=== PATIENT | female | born 1935 | race Caucasian/White ===

== ENCOUNTER → 2016-08-11 | Outpatient (CLI) | payer MEDICARE ==
[~2016-08-11] MED LIST: ADVAIR IH; ALLOPURINOL100 MG PO; AMBIEN CR6.25 MG PO; AVALIDE PO; CARDURA 2MG2 MG PO; LASIX 20MG TABL20 MG PO; LORTAB 5/500 501 TAB PO; PERCOCET 325 MG1 TA2 PO; PLAQUENIL PO; PRILOSEC 20MG20 MG PO; THEODUR 300MG PO; TRAMADOL50 MG PO; VERAPAMIL; ZOCOR; evista; proair
== END ==
LOC: COL.RAD 13:02
DX: S22.058A Other fracture of T5-T6 vertebra, initial encounter for closed fracture (principal)

== ENCOUNTER → 2017-10-10 | Outpatient (CLI) | payer MEDICARE | LOC: MC.RAD 13:00 | DX: Z12.31 Encounter for screening mammogram for malignant neoplasm of breast (principal) ==

== ENCOUNTER 2018-03-19 08:00 | Outpatient (RCR) | payer MEDICARE ==
[2018-03-15 08:46] VITALS: BP 1221/54; PULSE 53; TEMP 97.5
[2018-03-16 08:15] VITALS: BP 102/47; PULSE 90; TEMP 97.4
[2018-03-17 08:40] VITALS: BP 130/57; PULSE 66; TEMP 97.5
[2018-03-18 08:38] VITALS: BP 142/57; PULSE 57; TEMP 97.1
[~2018-03-19] VITALS: Ht 162.6 cm; Wt 79.6 kg
[~2018-03-19 08:00] MED LIST changes: -ALLOPURINOL100 MG PO; +AMBIEN 10MG10 MG PO; +ASPIRIN E.C. 8181 MG PO; +AVALIDE 12.5 MG1 TA1 PO; -AVALIDE PO; +CALCIUM 600MG+D1 TAB PO; +CATAPRES 0.1MG0.1 MG PO; +COREG12.5 MG PO; +HCTZ12.5TAB PO; +MIRAPEX 0.0.125 MG/T PO; +MULTI VITAMINS1 TAB PO; +NORCO 325 MG-51 TAB PO; +PLAQUENIL 200M200 MG PO; -PLAQUENIL PO; +PREDNISONE 5MG5 MG PO; +RT ADVAIR 228 DISKUS IH; +THEO-24 30300 MG/CAP PO; -THEODUR 300MG PO; -TRAMADOL50 MG PO; +TRANXENE 3.753.75 MG PO; +ULTRAM 50MG TAB50 MG PO; +VENTOLIN0.09 MG IH; -VERAPAMIL; +VERELAN360 MG PO; -ZOCOR; +ZOCOR5 MG PO; +ZYLOPRIM 100MG100 MG PO
[2018-03-19 09:25] VITALS: BP 142/60; PULSE 64; TEMP 97.6
== END 2018-03-19 09:26 | disposition home or self-care (01) ==
LOC: EUO 08:00
DX: N39.0 Urinary tract infection, site not specified (principal)
CPT/HCPCS: J0692

== ENCOUNTER 2019-11-21 12:29 | Inpatient (IN) | payer MEDICARE ==
[2019-11-21] VITALS (77 sets, daily range): BP systolic 94–102; BP diastolic 44–46; PULSE 49–55; TEMP 98–98.6; O2SAT 72–100
[~2019-11-21] VITALS: Ht 160 cm; Wt 79.8 kg
[2019-11-21 13:08] LABS: BASO # 0.1 (0.0-0.2); BASO % 0.4 % (0.0-2.0); EOS # 0.2 (0.0-0.7); EOS % 1.4 % (0-4.0); GRAN # 8.6 (1.4-6.5); GRAN % 74.5 % (42.2-75.2); HEMOGLOBIN 10.2 g/dl (12.5-16.0); LYMPH # 1.6 (1.2-3.4); LYMPH % 13.5 % (20.0-51.0); MEAN CELL VOLUME 97 fl (80.0-100.0); MEAN CORPUSCULAR HEMOGLOBIN 30 pg (27.0-31.0); MEAN CORPUSCULAR HGB CONC 31 g/dl (33.0-37.0); MEAN PLATELET VOLUME 10.2 fl (7.4-10.4); MONO # 1.1 (0.1-0.6); MONO % 9.4 % (1.7-9.3); PLATELET COUNT 192 K/mm3 (130-400); RED BLOOD COUNT 3.36 M/mm3 (4.10-5.30); REDCELL DISTRIBUTION WIDTH-CV 15.8 % (11.5-14.5)
[2019-11-21 13:09] LABS: HEMATOCRIT 32.6 % (37.0-47.0)
[2019-11-21 13:10] LABS: INR 1.3 (0.8-3.0)
[2019-11-21 13:18] LABS: ALBUMIN 3.3 gm/dL (3.5-5.0); BILIRUBIN,TOTAL 1.5 mg/dL (0.0-1.0); CREATININE, serum 2.14 (0.52-1.25); POTASSIUM 3.7 mmol/L (3.4-5.0); TOTAL PROTEIN 6.2 gm/dL (6.4-8.2)
[2019-11-21 13:29] LABS: TROPONIN-I 0.014 ng/mL (0.000-0.035)
[2019-11-21 13:49] LABS: C-REACTIVE PROTEIN 32.6 mg/dL (0.0-0.9)
--- NOTE | 2019-11-21 19:05 | NUR ---
RECEIVED REPORT FROM REX KOEHLER. PT SITTING UP IN BED PLAYING ON PHONE ON RA. CALL LIGHT WITHIN REACH. DENIES NEEDS.
--- NOTE | 2019-11-21 21:00 | NUR ---
DR WOOD AT BEDSIDE FOR ASSESSMENT. NO NEW ORDERS.
[2019-11-22] VITALS (403 sets, daily range): BP systolic 112–143; BP diastolic 56–91; PULSE 52–72; TEMP 97.7–98.2; O2SAT 67–100
[2019-11-22 06:28] LABS: MEAN CELL VOLUME 98 fl (80.0-100.0); MEAN CORPUSCULAR HGB CONC 31 g/dl (33.0-37.0); MEAN PLATELET VOLUME 10.8 fl (7.4-10.4); PLATELET COUNT 147 K/mm3 (130-400); RED BLOOD COUNT 3.21 M/mm3 (4.10-5.30); REDCELL DISTRIBUTION WIDTH-CV 15.2 % (11.5-14.5)
[2019-11-22 06:38] LABS: CREATININE, serum 1.61 (0.52-1.25); HEMATOCRIT 31.3 % (37.0-47.0); HEMOGLOBIN 9.7 g/dl (12.5-16.0); MAGNESIUM 1.5 mg/dL (1.6-2.3); MEAN CORPUSCULAR HEMOGLOBIN 30 pg (27.0-31.0); POTASSIUM 3.9 mmol/L (3.4-5.0)
[2019-11-22 08:18] LABS: ANISOCYTOSIS 1+; BAND 11 % (0-10); EOSINOPHIL 1 % (0-4); LYMPHOCYTE 7 % (20.0-51.0); NEUTROPHILS 78 % (42.0-75.2); PLATELET ESTIMATE NORMAL (NORMAL)
[2019-11-22 08:20] LABS: HYPOCHROMIA 2+
[2019-11-22 08:21] LABS: SCHISTOCYTES 1+
--- NOTE | 2019-11-22 14:00 | NUR ---
GUILLERMINA met with the patient to discuss discharge plan. The patient lives alone in [place]. She reports independence with ADLs and has a cane available to her, if needed. She states that she has a home wound vac that Dr. Naqvi set her up with. The patient's PCP is Dr. Mona James and she receives her medications at [facility]. She reports no difficulties obtaining her meds. The patient does not have advanced directives in EMR, but she reports that she does have a DPOA-HC completed and that the documents are at home. She states that her daughter, Blessing Ren (ph#[phone]), is her DPOA-HC and only living child. Blessing lives in [place]. The patient plans to return home upon discharge. SW discussed home health services and how they can provide education and provide assistance for the wound vac. The patient states that she will need to think about this. GUILLERMINA provided her with Medicare.gov's list of home health agencies that serve [place]. GUILLERMINA attempted to contact the patient's daughter, Blessing, to review d/c plan. SW left her a voicemail. SW to continue to follow.
--- NOTE | 2019-11-22 14:02 | NUR ---
First visit from the record changer tester. No needs right now.
--- NOTE | 2019-11-22 16:27 | NUR ---
Report given to Marcus at 1552, patient transfered to medical room 310 at 1611 via wheelchair. Patient tolerated well, all belongings sent with patient.
--- NOTE | 2019-11-22 19:34 | NUR ---
Pt up to the floor from the ICU this afternoon, no C/O pain since arriving, med rec complete, VS remain stable.
--- NOTE | 2019-11-22 20:00 | NUR ---
Report received, assumed care for retail shift leader. Assessment complete. VS stable. A&Ox3-very tearful. States she doesnt know why-she doesnt like being in the hospital. States she has been crying more lately even at home but cant express a reason. Denies shortness of breath/nausea. Rating pain 3/10 on pain scale to left calf-described as constant ache with occasional sharpness. Denies need for intervention. Left calf with redness/erythema/swelling. No drainage noted. Plan of care discussed for this shift to include pain managment and antibiotics. Verbalizes understanding. Requesting ambien at HS. Denies current needs. Call light in reach. Will monitor.
[2019-11-23] VITALS: BP 125/55; PULSE 92; TEMP 97.7
--- NOTE | 2019-11-23 01:00 | NUR ---
Called with c/o pain to left lower extremity. Rating pain 6/10-described as a constant ache with intermittent sharpness. Hydrocodone given per dr order. Will continue to monitor.
[2019-11-23 04:00] VITALS: BP 130/65; PULSE 79; TEMP 97.8
--- NOTE | 2019-11-23 04:38 | NUR ---
Has rested well this shift after increased dose of ambien. Requested AM dose of Protonix be given now as to get more sleep and antibiotics were due. Denies pain/nausea/shortness of breath. VS remained stable. No new changes this shift. Call light in reach. Will monitor.
[2019-11-23 07:21] LABS: BASO % 0.1 % (0.0-2.0); EOS % 0.2 % (0-4.0); GRAN % 84.6 % (42.2-75.2); LYMPH # 0.8 (1.2-3.4); LYMPH % 8.6 % (20.0-51.0); MEAN CELL VOLUME 96 fl (80.0-100.0); MEAN CORPUSCULAR HGB CONC 32 g/dl (33.0-37.0); MEAN PLATELET VOLUME 10.3 fl (7.4-10.4); MONO # 0.6 (0.1-0.6); MONO % 6.1 % (1.7-9.3); PLATELET COUNT 187 K/mm3 (130-400); RED BLOOD COUNT 2.98 M/mm3 (4.10-5.30); REDCELL DISTRIBUTION WIDTH-CV 14.9 % (11.5-14.5)
[2019-11-23 07:25] LABS: HEMATOCRIT 28.6 % (37.0-47.0); HEMOGLOBIN 9.2 g/dl (12.5-16.0); MEAN CORPUSCULAR HEMOGLOBIN 31 pg (27.0-31.0)
[2019-11-23 07:36] VITALS: BP 136/67; PULSE 71; TEMP 97.6
[2019-11-23 07:44] LABS: CALCIUM 8.5 mg/dL (8.4-10.2); CREATININE, serum 1.09 (0.52-1.25); POTASSIUM 3.5 mmol/L (3.4-5.0)
[2019-11-23 07:56] LABS: C-REACTIVE PROTEIN 16.9 mg/dL (0.0-0.9)
--- NOTE | 2019-11-23 10:12 | NUR ---
BEBO NOTE: PT AOX4. LEFT LEG SLIGHTLY RED, WARM AND 1+ PITTING EDEMA WITH BURNING PAIN. PRN NORCO GIVEN. LCTA. DENIES N/V, CP. GONZALES. TOLERATED PO. STEADY INDEPENDENT AMBULATION WITH WALKER. DRESSING TO LEFT CALF CLEAN, DRY AND INTACT WITH NO VISIBLE DRAINAGE. CHANGED YESTERDAY AT MIDNIGHT PER REPORT.
[2019-11-23 11:54] VITALS: BP 151/63; PULSE 63; TEMP 97.5
[2019-11-23] MEDS ORDERED: CEFTIN500 MG PO (12:42)
[2019-11-23] MEDS ORDERED: DOXYCYCLINE 10100 MG PO (12:42)
--- NOTE | 2019-11-23 13:54 | NUR ---
DR HANKINS IN ROOM VISITING PT DURING DRESSING CHANGE. PT VISIBLY AGGITATED STATING IF SHE DOES NOT GO HOME TODAY SHE WILL LEAVE AMA. CURRENTLY INFUSING 4HR ZOSYN. PICC TO RUE INTACT. LEFT WOUND 3 X 1. SMALL AMOUNT OF SLOUGH PRESENT. PLAN TO PLACE WOUND VAC MONDAY. WET TO DRY DRESSING APPLIED. PT REPORTS IMPROVED PAIN WITH NORCO. 1+ PITTING EDEMA TO LEFT LEG WITH MILD REDNESS AND WARMTH.
--- NOTE | 2019-11-23 15:16 | NUR ---
SW met with patient about obtaining a front wheel walker. SW gathered Order forms and faxed them to [facility] home medical. Spoke with global marketing operations manager about delivering to her home. Patient was agreeable to have walker delivered to her home. Walker may deliver on monday.
[2019-11-23 17:00] VITALS: BP 169/80; PULSE 70; TEMP 98.6
--- NOTE | 2019-11-23 17:29 | NUR ---
PT DISCHARGED TO HOME PICKED UP BY JASPER @ 1715. DENIES PAIN. LT CALF DRESSING INTACT. BP ELEVATED THUS GIVEN 1700 COREG AND ADVISED NOT TO TAKE DOSE TONIGHT. VERBALIZED UNDERSTANDING OF ALL DISCHARGE INSTRUCTIONS. PICC DC'D BY CHARGE NURSE.
== END 2019-11-23 17:15 | disposition home or self-care (01) | DRG 603 ==
LOC: COL.ER 12:29 → IMCU 13:35 → MEDICAL 11-22 16:26
PROVIDERS: Emergency Medicine; Family Medicine; ADMIT Internal Medicine
PROC: 02HV33Z Insertion of Infusion Device into Superior Vena Cava, Percutaneous Approach (ICD-10-PCS; principal; 2019-11-21)
DX: L03.116 Cellulitis of left lower limb (principal); E87.1 Hypo-osmolality and hyponatremia; N17.9 Acute kidney failure, unspecified; M19.90 Unspecified osteoarthritis, unspecified site; J45.909 Unspecified asthma, uncomplicated; I95.9 Hypotension, unspecified; G89.29 Other chronic pain; M32.9 Systemic lupus erythematosus, unspecified; R00.1 Bradycardia, unspecified; I12.9 Hypertensive chronic kidney disease with stage 1 through stage 4 chronic kidney disease, or unspecified chronic kidney disease; N18.3 Chronic kidney disease, stage 3 (moderate); E83.42 Hypomagnesemia; G47.00 Insomnia, unspecified
CPT/HCPCS: 99223-AI; 99233-AI; 99239; C1751; J0692; J1644; J2543; J3370; J3475; J7030; J7050; J7512

== ENCOUNTER → 2020-11-17 | Outpatient (CLI) | payer MEDICARE ==
[~2020-11-17] MED LIST changes: +CEFTIN500 MG PO; +DOXYCYCLINE 10100 MG PO
== END ==
LOC: COL.RAD 09:14
DX: K43.9 Ventral hernia without obstruction or gangrene (principal); K86.2 Cyst of pancreas; R06.02 Shortness of breath; R59.0 Localized enlarged lymph nodes; Z90.710 Acquired absence of both cervix and uterus

== ENCOUNTER 2021-01-25 14:00 | Outpatient (RCR) | payer MEDICARE | END 2021-02-07 | disposition still patient (30) | LOC: MKS.ESL.PT | DX: R29.6 Repeated falls (principal); R26.89 Other abnormalities of gait and mobility ==

== ENCOUNTER 2021-03-11 15:00 | Outpatient (RCR) | payer MEDICARE | END 2021-04-01 09:13 | disposition home or self-care (01) | LOC: MKS.ESL.PT 15:00 | DX: R29.6 Repeated falls (principal) ==

== ENCOUNTER 2021-07-27 07:05 | Day surgery (SDC) | payer MEDICARE ==
[~2021-07-27] VITALS: Ht 160 cm; Wt 65.3 kg
[2021-07-27] VITALS (8 sets, daily range): BP systolic 110–178; BP diastolic 46–73; PULSE 68–87; TEMP 97.3–97.6
[2021-07-27] MEDS ORDERED: AVALIDE 12.5 MG1 TA1 PO (08:54)
[2021-07-27] MEDS ORDERED: CATAPRES 0.1MG0.1 MG PO (08:55)
[2021-07-27] MEDS ORDERED: ATARAX 25MG25 MG/TAB PO (08:55)
[2021-07-27] MEDS ORDERED: VERELAN360 MG PO (08:55)
[2021-07-27] MEDS ORDERED: MULTI VITAMINS1 TAB PO (08:58)
[2021-07-27] MEDS ORDERED: ALBUTEROL0.83 MG/ML IH (09:01)
[2021-07-27] MEDS ORDERED: NORCO 325 MG-51 TAB PO (10:05)
--- NOTE | 2021-07-27 10:30 | NUR ---
PT TO BAY 7 PER CART FROM PACU. RECEIVED REPORT FROM PACU, RN. VS OBTAINED. PT ON 3L PER NC. CALL LIGHT WITHIN REACH. PT DENIES ANY NEEDS AT THIS TIME. WILL CONTINUE TO MONITOR PT.
--- NOTE | 2021-07-27 10:45 | NUR ---
PT RESTING COMFORTABLY. DENIES ANY NEEDS AT THIS TIME. WILL CONTINUE TO MONITOR.
--- NOTE | 2021-07-27 11:00 | NUR ---
PT SLEEPING/RESTING COMFORTABLY. WILL CONTINUE TO MONITOR.
--- NOTE | 2021-07-27 11:15 | NUR ---
PT IS ON 2L PER NC. PT CONTINUES TO REST COMFOTABLY. PT TOLERATING OJ AND COFFEE. WILL COINTINUE TO MONITOR. DENIES ANY NEEDS AT THIS TIME.
--- NOTE | 2021-07-27 11:30 | NUR ---
PT CONTINUES TO REST COMFORTABLY. DENIES ANY OTHER NEEDS AT THIS TIME. WILL CONTINUE TO MONITOR. PT ON 1L PER NC.
--- NOTE | 2021-07-27 12:00 | NUR ---
PT CONTINUES TO DENY ANY NEEDS. PT STATES SHE IS READY FR DC. PT ON RA AT THIS TIME. WILL CONTINUE TO MONITOR.
--- NOTE | 2021-07-27 12:15 | NUR ---
IV DC'D. PT TOLERATED WITHOUT DIFFICULTY.
--- NOTE | 2021-07-27 12:30 | NUR ---
DISCHARGE EDUCATION COMPLETED WITH PT. SHE VERBALIZED UNDSERSTANDING. ALL QUESTIONS ANSWERED. DISCHARGE PAPERWORK GIVEN TO PT.
--- NOTE | 2021-07-27 12:45 | NUR ---
PT OFF UNIT PER WHEELCHAIR. PT DISCHARGE TO HOME WITH DAUGHTER PER PERSONAL VEHICLE.
== END 2021-07-27 12:45 | disposition home or self-care (01) ==
LOC: SDCO 07:05
DX: K43.9 Ventral hernia without obstruction or gangrene (principal); K41.90 Unilateral femoral hernia, without obstruction or gangrene, not specified as recurrent
CPT/HCPCS: C1781; J0690; J2405; J2704; J3010; J7120

== ENCOUNTER 2021-12-16 16:48 | Observation (INO) | payer MEDICARE ==
[~2021-12-16] VITALS: Ht 160 cm; Wt 59.1 kg
[~2021-12-16 16:48] MED LIST changes: +ALBUTEROL0.83 MG/ML IH; +ATARAX 25MG25 MG/TAB PO
[2021-12-16 17:37] LABS: BASO % 0.1 % (0.0-2.0); EOS % 0.1 % (0.0-4.0); GRAN # 4.4 K/mm3 (1.4-6.5); GRAN % 60.7 % (42.2-75.2); HEMOGLOBIN 11.3 g/dl (12.5-16.0); LYMPH # 2.1 K/mm3 (1.2-3.4); LYMPH % 28.8 % (20.0-51.0); MEAN CELL VOLUME 93 fl (80.0-100.0); MEAN CORPUSCULAR HEMOGLOBIN 30 pg (27-31); MEAN CORPUSCULAR HGB CONC 32 g/dl (33.0-37.0); MEAN PLATELET VOLUME 9.9 fl (7.4-10.4); MONO # 0.7 K/mm3 (0.1-0.6); MONO % 9.8 % (1.7-9.3); PLATELET COUNT 247 K/mm3 (130-400); RED BLOOD COUNT 3.82 M/mm3 (4.10-5.30); REDCELL DISTRIBUTION WIDTH-CV 16.6 % (11.5-14.5)
[2021-12-16 17:47] VITALS: BP 142/71; PULSE 64
[2021-12-16 17:47] LABS: HEMATOCRIT 35.6 % (37.0-47.0)
[2021-12-16 18:05] LABS: ALBUMIN 3.3 gm/dL (3.4-4.8); BILIRUBIN,TOTAL 0.6 mg/dL (0.2-1.2); C-REACTIVE PROTEIN 1.46 mg/dL (0.00-0.50); CALCIUM 9.7 mg/dL (8.4-10.2); CREATININE, serum 2.08 mg/dL (0.57-1.11); POTASSIUM 4.5 mmol/L (3.5-4.5); TOTAL PROTEIN 6.4 gm/dL (6.2-8.1)
[2021-12-16 18:12] LABS: TROPONIN-I 0.226 ng/mL (0.00-0.033)
[2021-12-16] MEDS ORDERED: NORCO 325 MG-51 TAB PO (23:27)
[2021-12-16] MEDS ORDERED: AVALIDE 12.5 MG1 TA1 PO (23:29)
[2021-12-16] MEDS ORDERED: VERELAN360 MG PO (23:31)
[2021-12-16 23:42] LABS: PROTHROMBIN TIME 11.4 SECONDS (9.7-12.8)
[2021-12-17] VITALS: BP 127/64; PULSE 76; TEMP 97.9
[2021-12-17 05:00] VITALS: BP 163/85; PULSE 102
--- NOTE | 2021-12-17 05:00 | NUR ---
PT ARRIVED TO MEDICAL FLOOR AT 2230HRS TO ROOM 305. PT A&0 X 4; VSS FOR HER; O2 RA. PT COMPLAINED OF BACK PAIN. PT GIVEN NORCO AND ULTRAM FOR PAIN. PT FELT PAIN MEDICATION WAS EFFECTIVE FOR A WHILE. PT DENIED CHEST PAIN, PALPITATIONS, SOB, N,V,D OR DIZZINESS AT THIS TIME. ADMISSIONS ASSESSMENT AND MED REC COMPLETE. PT ORIENTED TO ROOM AND HOSPITAL POLICY. POC DISCUSSED WITH PT. PT VERBALIZED UNDERSTANDING. ALL QUESTIONS AND CONCERNS ADDRESSED. PT EXPRESSED NO ADDITIONAL NEEDS AT THIS TIME. CALL LIGHT WITHIN REACH.
[2021-12-17 05:03] VITALS: BP 152/68; PULSE 73; TEMP 98
[2021-12-17 07:41] LABS: BASO % 0.4 % (0.0-2.0); EOS % 0.2 % (0.0-4.0); GRAN # 2.5 K/mm3 (1.4-6.5); GRAN % 48.6 % (42.2-75.2); HEMOGLOBIN 10.1 g/dl (12.5-16.0); MEAN CELL VOLUME 92 fl (80.0-100.0); MEAN CORPUSCULAR HEMOGLOBIN 29 pg (27-31); MEAN CORPUSCULAR HGB CONC 31 g/dl (33.0-37.0); MEAN PLATELET VOLUME 10.3 fl (7.4-10.4); MONO # 0.6 K/mm3 (0.1-0.6); PLATELET COUNT 232 K/mm3 (130-400); RED BLOOD COUNT 3.52 M/mm3 (4.10-5.30); REDCELL DISTRIBUTION WIDTH-CV 16.6 % (11.5-14.5)
[2021-12-17 07:46] LABS: HEMATOCRIT 32.3 % (37.0-47.0)
[2021-12-17 08:37] VITALS: BP 155/68; PULSE 71; TEMP 97.5
--- NOTE | 2021-12-17 10:00 | NUR ---
PT VSS,ALERT AND ORIENT X4 DUE MED GIVEN NO ADVERSE REACTION NOTED.C/O BACK PAIN PRN PAIN MEDS GIVEN. PT REQUESTING FOR A DISCHARGE.
[2021-12-17 11:47] VITALS: BP 108/59; PULSE 51; TEMP 97.5
[2021-12-17] MEDS ORDERED: VERELAN240 MG PO (15:27)
--- NOTE | 2021-12-17 17:00 | NUR ---
PT DISCHARGED FROM THE UNIT,TELE REMOVED, IV REMOVED TIP INTACT, DC SUMMARY GIVEN, DISCHARGED INSTRUCTION GIVEN PT VAERBALIZE UNCERSTANDING.ESCORTED OUT OF THE UNIT BY UNIT TECH, AMBULATORY WITH A WHEELCHAIR. ACCOMPANIED HOME BY THE DAUGHTER.
== END 2021-12-17 17:00 | disposition home or self-care (01) ==
LOC: COL.ER 16:48 → MEDICAL 21:19
PROVIDERS: Emergency Medicine; Nurse Practitioner Family; ADMIT Internal Medicine
DX: U07.1 COVID-19 (principal); J45.909 Unspecified asthma, uncomplicated; I21.4 Non-ST elevation (NSTEMI) myocardial infarction; R55 Syncope and collapse; I10 Essential (primary) hypertension; E78.5 Hyperlipidemia, unspecified; R19.7 Diarrhea, unspecified; E83.52 Hypercalcemia; E87.2 Acidosis; D50.9 Iron deficiency anemia, unspecified; F41.9 Anxiety disorder, unspecified; G89.29 Other chronic pain; G47.00 Insomnia, unspecified; G25.81 Restless legs syndrome; Z66 Do not resuscitate; M32.9 Systemic lupus erythematosus, unspecified; R53.1 Weakness; R00.1 Bradycardia, unspecified; I08.1 Rheumatic disorders of both mitral and tricuspid valves; R77.8 Other specified abnormalities of plasma proteins; I31.3 Pericardial effusion (noninflammatory); I77.819 Aortic ectasia, unspecified site; Z79.899 Other long term (current) drug therapy; Z87.891 Personal history of nicotine dependence
CPT/HCPCS: G0378; J7030; J7512; M0222; Q0222

== ENCOUNTER 2022-06-06 12:45 | Outpatient (RCR) | payer MEDICARE ==
[~2022-06-06 12:45] MED LIST changes: +VERELAN240 MG PO
== END 2022-06-07 | disposition home or self-care (01) ==
LOC: MKS.ESL.PT
DX: Z72.3 Lack of physical exercise (principal)